=== PATIENT | female | born 1965 | race Caucasian/White ===

== ENCOUNTER 2016-04-20 07:38 | Day surgery (SDC) | payer BC ==
[2016-04-17 14:25] VITALS: BMI 34.7
[~2016-04-20 07:38] MED LIST: LACTATED RINGERS 1,000 ML IV SCH
[2016-04-20 07:54] VITALS: RESP 18; TEMP 98
[2016-04-20] MEDS ORDERED: LACTATED RINGERS 1,000 ML IV ONE (08:01)
[2016-04-20] MEDS ORDERED: LIDOCAINE 1% 20 ML VIAL (10MG/ML) FOR IV START INTRADERMA ONE (08:01)
[2016-04-20] MEDS ORDERED: PROPOFOL 10 MG/ML 20 ML VIAL IV ONE (08:34)
--- NOTE | 2016-04-20 08:48 | P.PCN ---
Date of Procedure: 04/20/16 Procedure(s) Performed: BRIEF HISTORY: Patient is a 50-year-old pleasant white female, scheduled for an elective colonoscopy as a part of screening for colorectal neoplasia. She has a family history of colon cancer diagnosed in her grandmother at age 80. PROCEDURE PERFORMED: Colonoscopy. PREOPERATIVE DIAGNOSIS: Any for colon cancer/family history of colon cancer. IV sedation per Anesthesia. PROCEDURE: After informed consent was obtained, the patient, was brought into the endoscopy unit. IV conscious sedation was administered by Anesthesia under continuous monitoring. Digital rectal examination was normal. Initially the Olympus CF-160 flexible video colonoscope was then inserted in the rectum, gradually advanced into the cecum without any difficulty. Careful examination was performed as the scope was gradually being withdrawn. Ileocecal valve and the appendiceal orifice were visualized and appeared normal. Prep was excellent. Mucosa of the cecum, ascending colon, transverse colon, descending colon, sigmoid colon, and rectum appeared normal. Retroflexion was performed in the rectum and no lesions were seen. The patient tolerated the procedure well. IMPRESSION: Normal-appearing colon from rectum to cecum with no evidence of colorectal neoplasia . RECOMMENDATIONS: Findings of this examination were discussed with the patient as well as a family. She was advised to have a repeat screening colonoscopy in 10 years.
[2016-04-20 09:14] VITALS: BP 144/83; PULSE 73
== END 2016-04-20 09:47 | disposition home or self-care (01) ==
LOC: ORWHC2ENDO 07:38
PROVIDERS: ATTEND Internal Medicine Gastroenterology
DX: Z12.11 Encounter for screening for malignant neoplasm of colon (principal); Z80.0 Family history of malignant neoplasm of digestive organs; Z79.899 Other long term (current) drug therapy; Z88.5 Allergy status to narcotic agent; Z88.8 Allergy status to other drugs, medicaments and biological substances
CPT/HCPCS: J2704; G0105; 99153

== ENCOUNTER → 2016-07-17 | Outpatient (CLI) | payer BC ==
--- NOTE | 2016-07-18 10:29 | MM ---
Reason for exam: screening (asymptomatic). Last mammogram was performed 1 year and 7 months ago. History: Patient is postmenopausal. Physical Findings: A clinical breast exam by your physician is recommended on an annual basis and results should be correlated with mammographic findings. MG Screening Mammo w CAD Bilateral CC and MLO view(s) were taken. Prior study comparison: December 25, 2014, bilateral MG screening mammo w CAD. December 21, 2013, bilateral MG screening mammo w CAD. There are scattered fibroglandular densities. Finding: There are typically benign round calcifications in the anterior, axilla position of the left breast. There is no discrete abnormality. ASSESSMENT: Benign, BI-RAD 2 RECOMMENDATION: Routine screening mammogram of both breasts in 1 year.
== END | disposition home or self-care (01) ==
LOC: RADMAMWWP 13:23
PROVIDERS: ATTEND Family Medicine
DX: Z12.31 Encounter for screening mammogram for malignant neoplasm of breast (principal)

== ENCOUNTER 2016-08-08 00:45 | Inpatient (IN) | payer BC ==
[2016-08-08] MEDS ORDERED: SODIUM CHLORIDE 0.9% 500 ML IV STA ×2 (01:03→03:57)
[2016-08-08] MEDS ORDERED: SODIUM CHLORIDE 0.9% 1,000 ML IV STA ×3 (01:03→03:57)
[2016-08-08] MEDS ORDERED: ACETAMINOPHEN TAB 500 MG TAB PO STA (01:04)
[2016-08-08] MEDS ORDERED: IBUPROFEN 800 MG TAB PO STA (01:04)
--- NOTE | 2016-08-08 01:05 | ED ---
General Adult HPI - General Chief complaint: Chest Pain Stated complaint: Chest Pain Time Seen by Provider: 08/08/16 00:57 Source: patient, RN notes reviewed, old records reviewed Mode of arrival: ambulatory Limitations: no limitations - History of Present Illness Initial comments: This is a 50-year-old female the ER for evaluation. Patient presents to ER for evaluation of the of chest pain. Chest pain, congestion, recent diagnosis of sinus infection. Patient also suffers from left arm pain. - Related Data Home Medications Medication Instructions Recorded Confirmed Cholecalciferol [Vitamin D3] 5,000 unit PO DAILY 04/17/16 04/20/16 Cyanocobalamin [Vitamin B-12] 1,000 mcg PO DAILY 04/17/16 04/20/16 Glucosamine Sulfate 1,500 mg PO DAILY 04/17/16 04/20/16 Phentermine HCl 37.5 mg PO DAILY 04/17/16 04/20/16 clonazePAM [KlonoPIN] 1 mg PO HS 04/17/16 04/20/16 Allergies Allergy/AdvReac Type Severity Reaction Status Date / Time ascorbic acid Allergy Anaphylaxis Verified 04/17/16 13:57 [From [facility] Vitamin D-Calcium] calcium combination no.27 Allergy Anaphylaxis Verified 04/17/16 13:57 [From [facility] Vitamin D-Calcium] cholecalciferol (vitamin D3) Allergy Anaphylaxis Verified 04/17/16 13:57 [From [facility] Vitamin D-Calcium] codeine Allergy Nausea & Verified 04/17/16 13:55 Vomiting multivitamin with minerals Allergy Anaphylaxis Verified 04/17/16 13:57 [From [facility] Vitamin D-Calcium] Review of Systems ROS Statement: Those systems with pertinent positive or pertinent negative responses have been documented in the HPI. ROS Other: All systems not noted in ROS Statement are negative. Past Medical History Past Medical History: No Reported History History of Any Multi-Drug Resistant Organisms: None Reported Past Surgical History: Back Surgery, Section, Hysterectomy Past Anesthesia/Blood Transfusion Reactions: Postoperative Nausea & Vomiting ( PONV) Past Psychological History: Anxiety Smoking Status: Never smoker Past Alcohol Use History: Occasional Past Drug Use History: None Reported - Past Family History Mother Family Medical History: No Reported History General Exam Limitations: no limitations General appearance: alert, in no apparent distress Head exam: Present: atraumatic, normocephalic, normal inspection Eye exam: Present: normal appearance, PERRL, EOMI. Absent: scleral icterus, conjunctival injection, periorbital swelling ENT exam: Present: normal exam, mucous membranes moist Neck exam: Present: normal inspection. Absent: tenderness, meningismus, lymphadenopathy Respiratory exam: Present: normal lung sounds bilaterally, accessory muscle use , decreased breath sounds, prolonged expiratory. Absent: respiratory distress, wheezes, rales, rhonchi, stridor Cardiovascular Exam: Present: normal rhythm, tachycardia, normal heart sounds. Absent: systolic murmur, diastolic murmur, rubs, gallop, clicks GI/Abdominal exam: Present: soft, normal bowel sounds. Absent: distended, tenderness, guarding, rebound, rigid Extremities exam: Present: normal inspection, full ROM, normal capillary refill. Absent: tenderness, pedal edema, joint swelling, calf tenderness Back exam: Present: normal inspection Neurological exam: Present: alert, oriented X3, CN II-XII intact Psychiatric exam: Present: normal affect, normal mood Skin exam: Present: warm, dry, intact, normal color. Absent: rash Course Vital Signs 08/08/16 08/08/16 00:58 02:59 Temperature 100.2 F H 98.7 F Pulse Rate 112 H 105 H Respiratory 20 18 Rate Blood Pressure 197/101 178/96 O2 Sat by Pulse 92 L 97 Oximetry - Reevaluation(s) Reevaluation #1: 08/08/16 01:05 Prior medical visit is reviewed Reevaluation #2: 08/08/16 03:59 Patient's rash is improving at this time, certainly remains tachycardic with fever EKG Findings - EKG Comments: EKG Findings:: EKG shows sinus tachycardia rate 109, ID [id number], QRS 96, QTC 439 Medical Decision Making - Medical Decision Making 50 female in the ER for evaluation of fever, feeling well jaw pain and facial pain, positive sinusitis, patient on amoxicillin outpatient with ALLERGIC reactions, presents with continued fever, elevated white count and positive infection, will admit for IV antibiotics - Lab Data Result diagrams: 08/08/16 01:31 08/08/16 01:31 Lab Results 08/08/16 08/08/16 08/08/16 Range/Units 01:31 01:31 01:31 WBC 13.9 H (3.8-10.6) k/uL RBC 5.23 (3.80-5.40) m/uL Hgb 15.1 (11.4-16.0) gm/dL Hct 43.9 (34.0-46.0) % MCV 84.0 (80.0-100.0) fL MCH 28.9 (25.0-35.0) pg MCHC 34.4 (31.0-37.0) g/dL RDW 13.2 (11.5-15.5) % Plt Count 252 (150-450) k/uL Neutrophils % 85 % Lymphocytes % 9 % Monocytes % 3 % Eosinophils % 3 % Basophils % 0 % Neutrophils # 11.7 H (1.3-7.7) k/uL Lymphocytes # 1.2 (1.0-4.8) k/uL Monocytes # 0.4 (0-1.0) k/uL Eosinophils # 0.4 (0-0.7) k/uL Basophils # 0.1 (0-0.2) k/uL PT (9.0-12.0) sec INR (<1.1) APTT (22.0-30.0) sec D-Dimer (<0.60) mg/L FEU Sodium 141 (137-145) mmol/L Potassium 3.7 (3.5-5.1) mmol/L Chloride 106 (98-107) mmol/L Carbon Dioxide 22 (22-30) mmol/L Anion Gap 13 mmol/L BUN 14 (7-17) mg/dL Creatinine 0.80 (0.52-1.04) mg/dL Est GFR (MDRD) Af Amer >60 (>60 ml/min/1.73 sqM) Est GFR (MDRD) Non-Af >60 (>60 ml/min/1.73 sqM) Glucose 147 H (74-99) mg/dL Plasma Lactic Acid Jose (0.7-2.0) mmol/L Calcium 9.6 (8.4-10.2) mg/dL Phosphorus 3.2 (2.5-4.5) mg/dL Magnesium 1.7 (1.6-2.3) mg/dL Total Bilirubin 1.1 (0.2-1.3) mg/dL AST 16 (14-36) U/L ALT 25 (9-52) U/L Alkaline Phosphatase 102 (38-126) U/L Total Creatine Kinase 55 (30-135) U/L CK-MB (CK-2) 0.4 (0.0-2.4) ng/mL CK-MB (CK-2) Rel Index 0.7 Troponin I <0.012 (0.000-0.034) ng/mL Total Protein 7.7 (6.3-8.2) g/dL Albumin 4.5 (3.5-5.0) g/dL Group A Strep Rapid (Negative) 08/08/16 08/08/16 08/08/16 Range/Units 01:31 01:31 01:31 WBC (3.8-10.6) k/uL RBC (3.80-5.40) m/uL Hgb (11.4-16.0) gm/dL Hct (34.0-46.0) % MCV (80.0-100.0) fL MCH (25.0-35.0) pg MCHC (31.0-37.0) g/dL RDW (11.5-15.5) % Plt Count (150-450) k/uL Neutrophils % % Lymphocytes % % Monocytes % % Eosinophils % % Basophils % % Neutrophils # (1.3-7.7) k/uL Lymphocytes # (1.0-4.8) k/uL Monocytes # (0-1.0) k/uL Eosinophils # (0-0.7) k/uL Basophils # (0-0.2) k/uL PT 10.5 (9.0-12.0) sec INR 1.0 (<1.1) APTT 25.9 (22.0-30.0) sec D-Dimer 0.74 H (<0.60) mg/L FEU Sodium (137-145) mmol/L Potassium (3.5-5.1) mmol/L Chloride (98-107) mmol/L Carbon Dioxide (22-30) mmol/L Anion Gap mmol/L BUN (7-17) mg/dL Creatinine (0.52-1.04) mg/dL Est GFR (MDRD) Af Amer (>60 ml/min/1.73 sqM) Est GFR (MDRD) Non-Af (>60 ml/min/1.73 sqM) Glucose (74-99) mg/dL Plasma Lactic Acid Jose 1.4 (0.7-2.0) mmol/L Calcium (8.4-10.2) mg/dL Phosphorus (2.5-4.5) mg/dL Magnesium (1.6-2.3) mg/dL Total Bilirubin (0.2-1.3) mg/dL AST (14-36) U/L ALT (9-52) U/L Alkaline Phosphatase (38-126) U/L Total Creatine Kinase (30-135) U/L CK-MB (CK-2) (0.0-2.4) ng/mL CK-MB (CK-2) Rel Index Troponin I (0.000-0.034) ng/mL Total Protein (6.3-8.2) g/dL Albumin (3.5-5.0) g/dL Group A Strep Rapid Negative (Negative) - Radiology Data Radiology results: report reviewed (Chest x-raynegative for acute disease, CT soft tissue neck CT chest shows sinusitis no PE), image reviewed Disposition Clinical Impression: Acute sinusitis, Sepsis, Allergic urticaria, Failure of outpatient treatment Narrative: No Amoxicillin Disposition: ADMITTED IP TO THIS HOSP Condition: Good Referrals: Sachi Beckham MD [Primary Care Provider] - 1-2 days
[2016-08-08] MEDS ORDERED: DEXAMETHASONE SOD PHOSPHATE 10 MG/ML 1 ML VIAL IV STA (01:29)
[2016-08-08] MEDS ORDERED: methylPREDNISolone SOD SUCCI 125 MG/2 ML VIAL IV STA (01:29)
[2016-08-08] MEDS ORDERED: ACETAMINOPHEN IV (For NPO) 1,000 MG in EMPTY BAG 1 BAG IVPB STA (01:29)
[2016-08-08] MEDS ORDERED: KETOROLAC 30 MG/ML 1 ML VIAL IVP STA (01:29)
[2016-08-08 01:50] LABS: Basophils # (A) 0.1 k/uL (0-0.2); Basophils % (A) 0 %; CH 29.6; CHCM 35.3; Eosinophils # (A) 0.4 k/uL (0-0.7); Eosinophils % (A) 3 %; HCT 43.9 % (34.0-46.0); HDW 2.78; HGB 15.1 gm/dL (11.4-16.0); Luc # (Auto) 0.09; Luc % (Auto) 1; Lymphocytes # (A) 1.2 k/uL (1.0-4.8); Lymphocytes % (A) 9 %; MCH 28.9 pg (25.0-35.0); MCHC 34.4 g/dL (31.0-37.0); Mean Platelet Volume 6.4; Monocytes # (A) 0.4 k/uL (0-1.0); Monocytes % (A) 3 %; Neutrophils # (A) 11.7 k/uL (1.3-7.7); Neutrophils % (A) 85 %; RBC 5.23 m/uL (3.80-5.40); RDW 13.2 % (11.5-15.5); WBC 13.9 k/uL (3.8-10.6); WBC (Perox) 12.98
[2016-08-08] MEDS ORDERED: FAMOTIDINE 20 MG/2 ML VIAL IV STA (01:53)
[2016-08-08] MEDS ORDERED: ONDANSETRON 4 MG/2 ML VIAL IVP STA (01:53)
[2016-08-08] MEDS ORDERED: diphenhydrAMINE 50 MG/ML 1 ML VIAL IVP STA (01:53)
--- NOTE | 2016-08-08 01:55 | XR ---
EXAM: XR Chest, 3 Views CLINICAL HISTORY: Reason: Weakness TECHNIQUE: Frontal and lateral views of the chest. COMPARISON: CXR 09/22/09 FINDINGS: Lungs: Unremarkable. No consolidation. Pleural space: Unremarkable. No pneumothorax. Heart: Unremarkable. No cardiomegaly. Mediastinum: Unremarkable. Bones/joints: Unremarkable. IMPRESSION: Unremarkable chest x-rays.
[2016-08-08 02:01] LABS: ALT 25 U/L (9-52); AST 16 U/L (14-36); Alkaline Phosphatase 102 U/L (38-126); Anion Gap 13 mmol/L; Blood Urea Nitrogen 14 mg/dL (7-17); Calcium 9.6 mg/dL (8.4-10.2); Carbon Dioxide 22 mmol/L (22-30); Chloride 106 mmol/L (98-107); Glucose 147 mg/dL (74-99); Magnesium 1.7 mg/dL (1.6-2.3); Non-African American GFR(MDRD) >60 (>60 ml/min/1.73 sqM); Phosphorous 3.2 mg/dL (2.5-4.5); Potassium 3.7 mmol/L (3.5-5.1); Sodium 141 mmol/L (137-145); Total Bilirubin 1.1 mg/dL (0.2-1.3); Total Protein 7.7 g/dL (6.3-8.2)
[2016-08-08 02:03] LABS: Partial Thromboplastin Time 25.9 sec (22.0-30.0); Prothrombin Time 10.5 sec (9.0-12.0)
[2016-08-08 02:12] LABS: Creatine Kinase 55 U/L (30-135)
--- NOTE | 2016-08-08 02:15 | CT ---
EXAM: CT Neck Without Intravenous Contrast CLINICAL HISTORY: Reason: Pain, left jaw pain, left arm pain, chest heaviness, diagnosed with sinus infection yesterday. TECHNIQUE: Axial computed tomography images of the neck without intravenous contrast. CTDI is 16.1 mGy and DLP is 553.4 mGy-cm This CT exam was performed using one or more of the following dose reduction techniques: automated exposure control, adjustment of the mA and/or kV according to patient size, and/or use of iterative reconstruction technique. Coronal and sagittal reformatted images were created and reviewed. COMPARISON: No relevant prior studies available. FINDINGS: Nasopharynx: Unremarkable. Oropharynx: Unremarkable. No significant tonsillar enlargement. Hypopharynx: Unremarkable. Larynx: Unremarkable. Normal epiglottis. Trachea: Unremarkable. Retropharyngeal space: Unremarkable. Submandibular/parotid glands: Unremarkable. Glands are normal in size. Thyroid: Unremarkable. No enlarged or calcified nodules. Bones/joints: Degenerative disc and left sided facet disease seen at C3/C4 with mild anterolisthesis. Probable degree of left-sided neuroforaminal stenosis at that level. Cervical spondylosis is also seen with left-sided neuroforaminal stenosis at C5/C6. Soft tissues: Unremarkable. Vasculature: No acute findings. Lymph nodes: Unremarkable. No lymphadenopathy. Sinuses: Fluid level within the right maxillary sinus which may correlate with acute sinusitis as per history. Mild mucosal thickening of the remainder of the paranasal sinuses, Lung apices: Unremarkable as visualized. IMPRESSION: 1. Fluid level within the right maxillary sinus which may correlate with acute sinusitis as per history. No abnormal abscess is identified however exam is less than optimal without IV contrast. 2. Degenerative disc and left sided facet disease seen at C3/C4 with mild anterolisthesis. Left-sided neuroforaminal stenosis at that level. 3. Cervical spondylosis is also seen with left-sided neuroforaminal stenosis at C5/C6.
[2016-08-08 02:25] LABS: Creatine Kinase MB 0.4 ng/mL (0.0-2.4); Troponin I <0.012 ng/mL (0.000-0.034)
[2016-08-08] MEDS ORDERED: RX INFO: IV CONTRAST WAS GIVEN 1 EACH MISC MISCELLANE PRN (02:26)
--- NOTE | 2016-08-08 03:35 | CT ---
EXAM: CT Angiography Chest With Intravenous Contrast CLINICAL HISTORY: Reason: Pain TECHNIQUE: Axial computed tomographic angiography images of the chest with intravenous contrast using pulmonary embolism protocol. CTDI is 11.7 mGy and DLP is 457.1 mGy-cm This CT exam was performed using one or more of the following dose reduction techniques: automated exposure control, adjustment of the mA and/or kV according to patient size, and/or use of iterative reconstruction technique. MIP reconstructed images were created and reviewed. Coronal and sagittal reformatted images were created and reviewed. CONTRAST: 55 mL of Omnipaque 350 administered intravenously. COMPARISON: No relevant prior studies available. FINDINGS: Pulmonary arteries: Unremarkable. No pulmonary embolism. Aorta: No acute findings. No thoracic aortic aneurysm. Lungs: Unremarkable. No mass. No consolidation. Pleural space: Unremarkable. No significant effusion. No pneumothorax. Heart: Unremarkable. No cardiomegaly. No significant pericardial effusion. No evidence of RV dysfunction. Mediastinum: Small hiatal hernia. Bones/joints: Multilevel degenerative changes of the spine. No acute fracture. No dislocation. Soft tissues: Unremarkable. Lymph nodes: Unremarkable. No enlarged lymph nodes. Liver: The spleen is enlarged measuring up to 14.1 cm. The liver is enlarged. IMPRESSION: No pulmonary embolism. Hepatosplenomegaly. Small hiatal hernia.
[2016-08-08] MEDS ORDERED: diphenhydrAMINE 50 MG/ML 1 ML VIAL IVP PRN (03:57)
[2016-08-08] MEDS ORDERED: AZITHROMYCIN 500 MG in SODIUM CHLORIDE 0.9% 250 ML IVPB STA (03:57)
[2016-08-08] MEDS ORDERED: ACETAMINOPHEN TAB 325 MG TAB PO PRN (04:00)
[2016-08-08 04:24] LABS: Appearance,Urine Clear (Clear); Bacteria,Urine Rare /hpf; Bilirubin,Urine Negative (Negative); Glucose,Urine (UA) Negative (Negative); Ketones,Urine Trace (Negative); Leukocyte Esterase,Urine Negative (Negative); Mucus,Urine Rare /hpf; Nitrite,Urine Negative (Negative); PH, Urine 5.5 (5.0-8.0); Particle Count 1367; Protein,Urine 1+ (Negative); Squamous Epithelial Cell,Urine 1 /hpf (0-4); UA Billing (MACRO vs. MICRO) MICRO; Urobilinogen,Urine <2.0 mg/dL (<2.0); WBC,Urine <1 /hpf (0-5)
[2016-08-08] MEDS ORDERED: IV VANCOMYCIN PER PHARMACY 1 EACH MISC MISCELLANE PRN (06:24)
[2016-08-08] MEDS: VANCOMYCIN 1,500 MG in SODIUM CHLORIDE 0.9% 250 ML IVPB SCH ×2 (08:52→21:22)
[2016-08-08] MEDS ORDERED: FAMOTIDINE 20 MG/2 ML VIAL IV SCH (09:00)
[2016-08-08] MEDS: IBUPROFEN 600 MG TAB PO SCH ×3 (09:00→21:25)
[2016-08-08] MEDS ORDERED: methylPREDNISolone SOD SUCCI 125 MG/2 ML VIAL IV SCH (09:00)
[2016-08-08] MEDS ORDERED: AMOXIC-POT CLAV 875-125MG 1 EACH TAB PO SCH (11:00)
--- NOTE | 2016-08-08 11:31 | P.HPIM ---
History of Present Illness H&P Date: 08/08/16 Chief Complaint: Since, fever and chills, severe facial pain, body ache, leukocytosis 50-year-old female one of our office patient was overweight with history of hyperglycemia GERD and severe insomnia was apparently was seen in the office 24 hours earlier for ROM severe facial pain low-grade temperature was diagnosed with severe sinusitis. Patient was started on Augmentin and took one dose only. Patient the blood to have body ache fever or chills and worsening facial pain with or lies fatigue and tiredness with mild tachycardia and tachypnea. Patient also developed to have significant shortness of breath with it. Ended up coming to the emergency department at [facility] with the above problem she ended up going for soft tissue x-ray showed fluid level in the right maxillary sinus along with mild spinal stenosis in the cervical spine. Her CTA came back negative for PE chest x-ray did not show clear evidence of pneumonia. Patient supposedly had a blood culture done started on 1 g of vancomycin and admitted to the hospital for sepsis consistent with tachycardia, fever and chills, leukocytosis, and mild hypoxia. Review of Systems Constitutional: Reports chills, Reports chronic headaches, Reports chronic pain , Reports fatigue, Reports fever, Reports malaise, Reports poor appetite, Reports sweats, Reports weakness, Reports weight gain, Denies as per HPI, Denies anorexia, Denies daytime sleepiness, Denies lethargy, Denies night sweats , Denies weight loss Eyes: bilateral blurred vision, bilateral diplopia Ears: bilateral: decreased hearing Ears, nose, mouth and throat: Reports dental pain, Reports dysphagia, Reports headache, Reports nasal congestion, Reports nasal discharge, Reports neck fullness/pressure, Reports sinus pain, Reports sinus pressure, Reports swelling in mouth, Reports sore throat, Denies as per HPI, Denies ant. neck pain, Denies bleeding gums, Denies epistaxis, Denies hoarseness, Denies mouth pain, Denies neck lump, Denies nose pain, Denies odynophagia, Denies post-nasal drip, Denies swelling in throat, Denies vertigo, Denies voice changes Breasts: bilateral: as per HPI Cardiovascular: Reports decreased exercise tolerance, Reports dyspnea on exertion, Reports edema, Reports high blood pressure, Reports irregular heart beat, Reports leg edema, Reports lightheadedness, Reports orthopnea, Reports palpitations, Reports rapid heart beat, Reports shortness of breath, Denies as per HPI, Denies chest pain, Denies claudication, Denies paroxysmal nocturnal dyspnea, Denies phlebitis, Denies syncope Respiratory: Reports congestion, Reports cough, Reports dyspnea, Reports respiratory infections, Denies as per HPI, Denies cough with sputum, Denies excessive sputum, Denies hemoptysis, Denies home oxygen, Denies pain, Denies pain on inspiration, Denies pleurisy, Denies sleep apnea, Denies snoring, Denies wheezing Gastrointestinal: Reports bloating, Reports dyspepsia, Reports early satiety, Reports indigestion, Reports nausea, Denies as per HPI, Denies abdominal pain, Denies belching, Denies BRBPR, Denies change in bowel habits, Denies coffee ground emesis, Denies constipation, Denies diarrhea, Denies excessive gas, Denies heartburn, Denies hematemesis, Denies hematochezia, Denies jaundice, Denies lactose intolerance, Denies loss of appetite, Denies melena, Denies vomiting Genitourinary: Denies as per HPI, Denies abnormal vaginal bleeding, Denies decreased libido, Denies difficulty conceiving, Denies difficulty voiding, Denies dysmenorrhea, Denies dyspareunia, Denies dysuria, Denies flank pain, Denies genital sores, Denies hematuria, Denies hot flashes, Denies incomplete emptying, Denies kidney stones, Denies menorrhagia, Denies mixed incontinence, Denies nocturia, Denies pelvic pain, Denies post void dribbling, Denies , Denies prolapse symptoms, Denies stress incontinence, Denies urge incontinence , Denies urgency, Denies urinary frequency, Denies vaginal discharge, Denies vaginal dryness, Denies vaginal itching, Denies vaginal odor Menstruation: Denies as per HPI, Denies amenorrhea, Denies amenorrhea on BC, Denies currently menstrual, Denies cycle < 21 days, Denies cycle > 35 days, Denies cycle variable, Denies menses 1-7 days, Denies menses 8 or > days, Denies menses variable, Denies period heavy, Denies period light, Denies period normal, Denies period spotting, Denies post hysterectomy, Denies postmenopausal , Denies premenarcheal Musculoskeletal: Reports limitation of motion, Reports low back pain, Reports myalgias, Reports neck pain, Denies as per HPI, Denies arm numbness/tingling, Denies atrophy, Denies fractures, Denies frequent falls, Denies gait dysfunction , Denies hot joints, Denies leg numbness/tingling, Denies loss of height, Denies morning stiffness, Denies muscle cramps, Denies muscle weakness, Denies neck stiffness, Denies prior amputations, Denies redness of joints, Denies shooting arm pain, Denies shooting leg pain Musculoskeletal: bilateral: ankle pain Integumentary: Reports dryness, Reports pruritus, Reports rash, Denies as per HPI, Denies acne, Denies boils, Denies brittle nails, Denies change in hair/ nails, Denies color changes, Denies darkening of skin, Denies depigmentation, Denies foot/leg ulcers, Denies growths, Denies hirsutism, Denies lesions, Denies onychomycosis, Denies sores, Denies striae, Denies unusual bruising, Denies wounds Neurological: Reports spasticity, Reports tingling, Denies as per HPI, Denies aphasia, Denies ataxia, Denies balance difficulties, Denies burning pain, Denies change in mentation, Denies change in smell/taste, Denies change in speech, Denies confusion, Denies convulsions, Denies double vision, Denies gait dysfunction, Denies head injury, Denies headaches, Denies hearing difficulties, Denies lack of coordination, Denies loss of vision, Denies memory loss, Denies migraines, Denies motor disturbance, Denies numbness, Denies paralysis, Denies paresthesias, Denies seizures, Denies sensory deficit, Denies syncope, Denies tic, Denies transient paralysis, Denies tremors, Denies vertigo, Denies weakness , Denies visual changes Psychiatric: Reports anxiety, Denies as per HPI, Denies anhedonia, Denies anxiety attacks, Denies change in appetite, Denies change in libido, Denies change in sleep habits, Denies confusion, Denies depression, Denies difficulty concentrating, Denies disorientation, Denies hallucinations, Denies hopelessness , Denies hypersomnia, Denies insomnia, Denies irritability, Denies memory loss, Denies mood swings, Denies paranoia, Denies sadness/tearfulness, Denies sleep disturbances, Denies suicidal ideation Endocrine: Reports excessive sweating, Reports excessive thirst, Reports fatigue , Reports heat intolerance, Denies as per HPI, Denies cold intolerance, Denies deepening of the voice, Denies flushing, Denies high blood sugars, Denies increase in ring/shoe/hat size, Denies low blood sugars, Denies nocturia, Denies palpitations, Denies polydipsia, Denies polyphagia, Denies polyuria, Denies proptosis, Denies recent glucocorticoid use, Denies thyroid mass, Denies weight change Hematologic/Lymphatic: Reports easy bruising, Denies as per HPI, Denies easy bleeding, Denies lymphadenopathy, Denies lymphedema, Denies thrombophilia Allergic/Immunologic: Reports allergic rhinitis, Denies as per HPI, Denies anaphylaxis, Denies angioedema, Denies gluten intolerance, Denies persistent infections, Denies seasonal allergies, Denies urticaria, Denies wheezing Past Medical History Past Medical History: No Reported History History of Any Multi-Drug Resistant Organisms: None Reported Past Surgical History: Back Surgery, Section, Hysterectomy Past Anesthesia/Blood Transfusion Reactions: Postoperative Nausea & Vomiting ( PONV) Past Psychological History: Anxiety Smoking Status: Never smoker Past Alcohol Use History: Occasional Past Drug Use History: None Reported - Past Family History Mother Family Medical History: No Reported History Medications and Allergies Home Medications Medication Instructions Recorded Confirmed Type Cholecalciferol [Vitamin D3] 5,000 unit PO DAILY 04/17/16 08/08/16 History Cyanocobalamin [Vitamin B-12] 1,000 mcg PO DAILY 04/17/16 08/08/16 History Phentermine HCl 37.5 mg PO DAILY 04/17/16 08/08/16 History clonazePAM [KlonoPIN] 1 mg PO HS 04/17/16 08/08/16 History Allergies Allergy/AdvReac Type Severity Reaction Status Date / Time amoxicillin [From Augmentin] Allergy Anaphylaxis Verified 08/08/16 08:20 ascorbic acid Allergy Anaphylaxis Verified 08/08/16 08:20 [From Emergen- Vitamin D-Calcium] calcium combination no.27 Allergy Anaphylaxis Verified 08/08/16 08:20 [From Emergen- Vitamin D-Calcium] cholecalciferol (vitamin D3) Allergy Anaphylaxis Verified 08/08/16 08:20 [From Emergen-C Vitamin D-Calcium] clavulanic acid Allergy Anaphylaxis Verified 08/08/16 08:20 [From Augmentin] codeine Allergy Nausea & Verified 08/08/16 08:20 Vomiting multivitamin with minerals Allergy Anaphylaxis Verified 08/08/16 08:20 [From Emergen-C Vitamin D-Calcium] Physical Exam Vitals: Vital Signs Temp Pulse Pulse Resp BP BP Pulse Ox 08/08/16 07:00 97.0 F L 114 H 16 150/85 94 L 08/08/16 05:01 98.0 F 106 H 16 164/93 95 08/08/16 04:20 105 H 16 148/67 98 Intake and Output 08/07/16 08/08/16 08/08/16 22:59 06:59 14:59 Other: Voiding Method Toilet # Voids 2 - Constitutional General appearance: no average body habitus, cooperative, no disheveled, no mild distress, no morbidly obese, no no acute distress, obese, no severe distress, no thin - EENT Neck and pain and pressure in the maxillary sinus area specially in the right side with reactive lymph node in her neck area. Eyes: no abnormal pupil, no anicteric sclerae, no disc margins sharp, no edentulous, no EOMI, no PERRLA, no fundus normal, no photophobia, no dentition normal, no poor dentition, no ptosis, no scleral icterus, normal appearance ENT: no hard of hearing, no hearing grossly normal, no NA/AT, no normal oropharynx, no other, pharyngeal erythema, no thrush, no tonsillar exudates, tonsillar swelling Ears: bilateral: normal - Neck Neck: lymphadenopathy, no normal ROM, no other, no rigidity, no stridor, no thyromegaly Carotids: bilateral: upstroke normal Thyroid: bilateral: normal size - Respiratory Respiratory: bilateral: diminished, dullness - Cardiovascular Rhythm: regular Heart sounds: normal: S1, S2 Abnormal Heart Sounds: systolic murmur, S3 Gallop - Gastrointestinal General gastrointestinal: no absent bowel sounds, decreased bowel sounds, no distended, no hepatomegaly, no hyperactive bowel sounds, normal bowel sounds, no organomegaly, no rigid, no scaphoid, soft, no splenomegaly, no tenderness, no umbilical hernia, no ventral hernia - Integumentary Integumentary: no calor, no cellulitis, no cyanotic, no decreased turgor, no flushed, no jaundiced, normal, no normal turgor, pale, rash, no ulcer - Neurologic Neurologic: CNII-XII intact - Musculoskeletal Musculoskeletal: no gait normal, generalized weakness, no strength equal bilaterally, no right sided weakness, no left sided weakness - Psychiatric Psychiatric: A&O x's 3, appropriate affect, no intact judgment & insight Results CBC & Chem 7: 08/08/16 01:31 08/08/16 01:31 Thrombosis Risk Factor Assmnt - DVT/VTE Prophylaxis DVT/VTE Prophylaxis: Mechanical Prophylaxis ordered - Choose All That Apply Any of the Below Risk Factors Present?: Yes Each Factor Represents 1 point: Age 41-60 years, Obesity (BMI >25) Other Risk Factors: No Thrombosis Risk Factor Assessment Total Risk Factor Score: 2 Thrombosis Risk Factor Assessment Level: Low Risk Assessment and Plan Plan: 1 sepsis/SIRS: With reactive symptoms including tachycardia fever or chills hypoxia shortness of breath. Patient was giving 1 g of Vanco we'll continue Vanco for now continue supportive care blood culture was done all finding so far consistent with severe sinusitis with nothing else which can be the source of infection slightly unusual. 2 severe sinusitis: With patient's current symptoms vancomycin was started were started patient back on oral antibiotics along with steroid will be switched to bring dose of prednisone for total of 12 days. Continue patient on Flonase and decongestant medication. 3 hyperglycemia: Patient will be on Accu-Chek with sliding scales coverage while she is on steroid. 4 leukocytosis: Most likely secondary to infection treat underlying disease repeat CBC in 48 hours. 5 severe insomnia: Patient is on clonazepam 1 mg daily at bedtime. 6 severe GERD/GI prophylaxis: Patient will be on Pepcid 20 mg daily. 7 DVT prophylaxis: Patient remain on Lovenox 40 mg daily. CODE STATUS: Full code. Expectation from this admission: Patient be in the hospital for 1-2 nights.
[2016-08-08] MEDS: DOXYCYCLINE 50 MG CAP PO SCH ×2 (12:50→21:23)
[2016-08-08] MEDS: ENOXAPARIN 40 MG/0.4 ML SYRINGE SQ SCH (12:52)
[2016-08-08] MEDS ORDERED: clonazePAM 1 MG TAB PO SCH (21:00)
[2016-08-08] MEDS: FAMOTIDINE 20 MG TAB PO SCH (21:23)
[2016-08-09 07:39] VITALS: BP 160/86; PULSE 87; RESP 16; TEMP 96.8
[2016-08-09] MEDS: DOXYCYCLINE 50 MG CAP PO SCH (07:52)
[2016-08-09] MEDS: VANCOMYCIN 1,500 MG in SODIUM CHLORIDE 0.9% 250 ML IVPB SCH (07:52)
[2016-08-09] MEDS: FAMOTIDINE 20 MG TAB PO SCH (07:53)
[2016-08-09] MEDS: ENOXAPARIN 40 MG/0.4 ML SYRINGE SQ SCH (07:53)
[2016-08-09] MEDS: IBUPROFEN 600 MG TAB PO SCH (07:54)
[2016-08-09] MEDS ORDERED: AZITHROMYCIN 500 MG in SODIUM CHLORIDE 0.9% 250 ML IVPB SCH (09:00)
[2016-08-09] MEDS ORDERED: predniSONE 20 MG TAB PO SCH (09:00)
--- NOTE | 2016-08-09 13:01 | P.DS ---
Providers Date of admission: 08/08/16 04:01 Expected date of discharge: 08/09/16 Attending physician: Sachi Beckham Primary care physician: Sachi Beckham [facility] Course: 08/08: 50-year-old female one of our office patient was overweight with history of hyperglycemia GERD and severe insomnia was apparently was seen in the office 24 hours earlier for ROM severe facial pain low-grade temperature was diagnosed with severe sinusitis. Patient was started on Augmentin and took one dose only. Patient the blood to have body ache fever or chills and worsening facial pain with or lies fatigue and tiredness with mild tachycardia and tachypnea. Patient also developed to have significant shortness of breath with it. Ended up coming to the emergency department at [facility] with the above problem she ended up going for soft tissue x-ray showed fluid level in the right maxillary sinus along with mild spinal stenosis in the cervical spine. Her CTA came back negative for PE chest x-ray did not show clear evidence of pneumonia. Patient supposedly had a blood culture done started on 1 g of vancomycin and admitted to the hospital for sepsis consistent with tachycardia, fever and chills, leukocytosis, and mild hypoxia. 08/09: Patient's symptoms improved. Urine culture showed no growth, throat culture still in progress, preliminary shows Streptococcus group A. she will be discharged on doxycycline and a prednisone taper. She was also discharged with Flonase and Claritin. She'll follow-up in the office in a week, sooner if needed. Discharge diagnoses: 1 sepsis/SIRS 2 severe sinusitis 3 hyperglycemia 4 leukocytosis 5 severe insomnia CODE STATUS: Full code. CC: Dr. Beckham The above impression and plan of care have been discussed and directed by signing physician. Rupali Yuen nurse practitioner acting as scribe for signing physician. Pertinent Studies: Chest CTA, soft tissue neck CT, chest x-ray Patient Condition at Discharge: Good Plan - Discharge Summary New Discharge Prescriptions: Desloratadine/Pseudoephedrine [Clarinex-D 12 Hour Tablet] 1 each PO BID #60 tbmp.12hr Doxycycline [Vibramycin] 100 mg PO BID #20 cap Famotidine [Pepcid] 20 mg PO Q12HR #60 tab Fluticasone Nasal Fiatt [Flonase Nasal Fiatt] 2 spr EA NOSTRIL DAILY #1 bottle predniSONE 5 mg PO DAILY #40 tab Discharge Medication List Cholecalciferol [Vitamin D3] 5,000 unit PO DAILY 04/17/16 [History] Cyanocobalamin [Vitamin B-12] 1,000 mcg PO DAILY 04/17/16 [History] Phentermine HCl 37.5 mg PO DAILY 04/17/16 [History] clonazePAM [KlonoPIN] 1 mg PO HS 04/17/16 [History] Desloratadine/Pseudoephedrine [Clarinex-D 12 Hour Tablet] 1 each PO BID #60 tbmp.12hr 08/09/16 [Rx] Doxycycline [Vibramycin] 100 mg PO BID #20 cap 08/09/16 [Rx] Famotidine [Pepcid] 20 mg PO Q12HR #60 tab 08/09/16 [Rx] Fluticasone Nasal Fiatt [Flonase Nasal Fiatt] 2 spr EA NOSTRIL DAILY #1 bottle 08/09/16 [Rx] predniSONE 5 mg PO DAILY #40 tab 08/09/16 [Rx] Follow up Appointment(s)/Referral(s): Sachi Beckham MD [Primary Care Provider] - 08/13/16 9:30 am Patient Instructions/Handouts: Urticaria (GEN), Sinusitis (GEN) Activity/Diet/Wound Care/Special Instructions: Regular diet. Discharge Disposition: HOME SELF-CARE
== END 2016-08-09 11:11 | disposition home or self-care (01) | DRG 872 ==
LOC: EC 00:45 → 4MS4W 04:01
PROVIDERS: ADMIT Family Medicine; ATTEND Family Medicine
DX: A41.9 Sepsis, unspecified organism (principal); M48.02 Spinal stenosis, cervical region; B95.0 Streptococcus, group A, as the cause of diseases classified elsewhere; R00.0 Tachycardia, unspecified; J01.00 Acute maxillary sinusitis, unspecified; R73.9 Hyperglycemia, unspecified; R09.02 Hypoxemia; R06.82 Tachypnea, not elsewhere classified; D72.829 Elevated white blood cell count, unspecified; L50.0 Allergic urticaria; R51 Headache; R53.83 Other fatigue; K21.9 Gastro-esophageal reflux disease without esophagitis; G47.00 Insomnia, unspecified; E66.3 Overweight; G89.29 Other chronic pain; F41.9 Anxiety disorder, unspecified; Z68.35 Body mass index [BMI] 35.0-35.9, adult; Z79.899 Other long term (current) drug therapy; Z88.1 Allergy status to other antibiotic agents; Z90.710 Acquired absence of both cervix and uterus; Z88.5 Allergy status to narcotic agent; Z88.0 Allergy status to penicillin; Z88.8 Allergy status to other drugs, medicaments and biological substances
CPT/HCPCS: 36415; 70490; 71020; 71275; 80053; 81001; 82550; 82553; 83605; 83735; 84100; 84484; 85025; 85379; 85610; 85730; 87081; 87086; 87430; 93005; 96361; 96365; 96375; 99285

== ENCOUNTER → 2017-08-20 | Outpatient (CLI) | payer BC ==
--- NOTE | 2017-08-20 14:55 | BD ---
EXAMINATION TYPE: Axial Bone Density DATE OF EXAM: 08/20/2017 COMPARISON: NONE CLINICAL HISTORY: Height: 5 FT 5 1/2 IN Weight: 228 FRAX RISK QUESTIONS: RISK FACTORS HISTORY OF: Surgery to Spine/Hip(right/left)/Wrist (right/left): LUMBAR FUSION When: 22 YEARS AGO Family History of Osteoporosis: YES Active: YES Postmenopausal woman: PART HYST AGE 30 MEDICATIONS: Additional Medications: WEIGHT LOSS MEDS, VALSARTIN, SLEEP AID Additional History: EXAM MEASUREMENTS: Bone mineral density about the R hip (g/cm2): 1.223 Bone mineral density about the L hip (g/cm2): 1.180 T Score values are as follows: -----R Neck: 1.3 -----L Neck: 1.0 -----R Total: 2.7 -----L Total: 2.2 BASELINE Bone mineral density about the L Wrist (g/cm2): 0.862 T Score values are as follows: -----Dist. R+U: 3.6 -----Prox. R+U: 2.2 -----Radius total: 3.1 BASELINE IMPRESSION: Normal (Values between +1 and -1 indicate normal bone mass). Consider repeating this study in 5 year s or sooner if there is some new clinical indication. NOTE: T-SCORE=SD OF THE YOUNG ADULT MEAN.
--- NOTE | 2017-08-21 13:54 | MM ---
Reason for exam: screening (asymptomatic). Last mammogram was performed 1 year and 1 month ago. History: Patient is postmenopausal. Family history of breast cancer in maternal aunt. Physical Findings: A clinical breast exam by your physician is recommended on an annual basis and results should be correlated with mammographic findings. MG Screening Mammo w CAD Bilateral CC and MLO view(s) were taken. Prior study comparison: July 17, 2016, bilateral MG screening mammo w CAD. December 25, 2014, bilateral MG screening mammo w CAD. There are scattered fibroglandular densities. Finding: There is a typically benign appearing developing 5 mm equal density (isodense), indistinct oval mass located 9 cm from the nipple in the upper outer quadrant, posterior position of the right breast. New finding since July 17, 2016 and December 25, 2014. ASSESSMENT: Incomplete: need additional imaging evaluation, BI-RAD 0 RECOMMENDATION: Special view mammogram of the right breast. If lesion persists on supplemental views, image directed ultrasound is recommended. [facility] will attempt to contact patient to return for supplemental views and ultrasound if indicated.
== END | disposition home or self-care (01) ==
LOC: RADMAMWWP 07:06
PROVIDERS: ATTEND Family Medicine
DX: Z12.31 Encounter for screening mammogram for malignant neoplasm of breast (principal); Z78.0 Asymptomatic menopausal state
CPT/HCPCS: 77067; 77080

== ENCOUNTER → 2017-08-29 | Outpatient (CLI) | payer BC ==
--- NOTE | 2017-08-29 14:47 | MM ---
Reason for exam: additional evaluation requested from abnormal screening. Last mammogram was performed less than 1 month ago. History: Patient is postmenopausal. Family history of breast cancer in maternal aunt at age 50 and breast cancer in 2 paternal cousins. Physical Findings: Nurse did not find any significant physical abnormalities on exam. MG Work Up Mamm w CAD RT Spot compression CC, spot compression MLO, and ML view(s) were taken of the right breast. Prior study comparison: August 20, 2017, bilateral MG screening mammo w CAD. July 17, 2016, bilateral MG screening mammo w CAD. The breast tissue is heterogeneously dense. This may lower the sensitivity of mammography. The right lateral asymmetry persists on spot compression view with no definitive MLO/ML correlate. These results were verbally communicated with the patient and result sheet given to the patient on 08/29/17. ASSESSMENT: Incomplete: need additional imaging evaluation, BI-RAD 0 RECOMMENDATION: Ultrasound of the right breast. lateral breast
--- NOTE | 2017-08-29 14:48 | USB ---
Reason for exam: additional evaluation requested from abnormal screening. History: Patient is postmenopausal. Family history of breast cancer in maternal aunt at age 50 and breast cancer in 2 paternal cousins. US Breast Workup Limited RT Right limited breast ultrasound including focal area of concern, retroareolar and axilla demonstrates a 6 x 6mm oval probable lymph node at 10 o'clock, 6 month follow up recommended as a precautionary measure. These results were verbally communicated with the patient and result sheet given to the patient on 08/29/17. ASSESSMENT: Probably benign, BI-RAD 3 RECOMMENDATION: Ultrasound of the right breast in 6 months.
== END | disposition home or self-care (01) ==
LOC: RADMAMWWP 13:40
PROVIDERS: ATTEND Family Medicine
DX: R92.8 Other abnormal and inconclusive findings on diagnostic imaging of breast (principal)
CPT/HCPCS: 77065

== ENCOUNTER → 2018-03-03 | Outpatient (CLI) | payer BC ==
--- NOTE | 2018-03-03 10:09 | USB ---
Reason for exam: follow-up at short interval from prior study. History: Patient is postmenopausal. Family history of breast cancer in maternal aunt at age 50 and breast cancer in 2 paternal cousins. Physical Findings: Nurse did not find any significant physical abnormalities on exam. US Breast RT Right complete breast ultrasound includes all four quadrants, the retroareolar region and axilla. Finding demonstrates a 0.5 x 0.2 x 0.6cm lesion too small to characterize at 7 o'clock, possible prominent lobule, if interval growth in 6 months then biopsy would be recommended and a 0.6 x 0.5 x 0.6cm probable node at 10 o'clock. These results were verbally communicated with the patient and result sheet given to the patient on 03/03/18. ASSESSMENT: Probably benign, BI-RAD 3 RECOMMENDATION: Ultrasound of the right breast in 6 months. (7 o'clock)
== END ==
LOC: RADUSWWP 08:49
PROVIDERS: ATTEND Family Medicine
DX: R92.2 Inconclusive mammogram (principal)

== ENCOUNTER → 2018-04-07 | Outpatient (CLI) | payer BC ==
--- NOTE | 2018-04-07 12:52 | MR ---
EXAMINATION TYPE: MR brain/cspine wo/w DATE OF EXAM: 04/07/2018 COMPARISON: None HISTORY: Headache, dizziness, neck and shoulder pain TECHNIQUE: Multiplanar, multisequence images of the brain and brainstem, cervical spine is performed without and with IV contrast, utilizing 10 mL intravenous Gadavist . FINDINGS: Brain: Diffusion weighted images demonstrate no evidence of a recent infarct or other diffusion abnor mality. There is no extra-axial fluid collection. Scattered hyperintensities are present within the subcortical and juxtacortical, periventricular and pericallosal white matter on inversion recovery an d T2-weighted sequences. There are approximately 20-30 lesions, the largest on axial image 16 measure s 6 to 7 mm in the left temporal lobe. The ventricular system and cisternal spaces are normal in size and appearance. The brain volume is age appropriate. Choroidal fissure cysts noted on the left grea ter than right. Midline structures demonstrate normal morphology. The craniocervical junction appears within normal limits. Post contrast images demonstrate no abnormal enhancement. The dural venous sinuses appear pa tent. The visualized sinuses are remarkable for possible mucus retention cysts or polyps within the m axillary sinuses, inflammatory change in the ethmoid air cells and the globes are intact. Cervical spine: Cervical cord signal is maintained. Cervical vertebral bodies show preserved height, alignment, and bone marrow signal. There is multilevel spondylosis. Loss of disc height present great est at C4-5, C5-6 greater than 4, C6-7. C2-3: Within normal limits C3-4: No significant central canal stenosis. Small left posterior paracentral disc bulge causes sligh t anterior mass effect on the thecal sac. No significant foraminal encroachment. 4 5: Posterior extension of endplate disc complex causes mild anterior mass effect on the thecal sac. Lateral extension of endplate disc complex is causes foraminal encroachment right greater than left. C5-6: Posterior extension of endplate disc complex causes mild anterior mass effect on the thecal sac , mild central stenosis. Lateral extension endplate disc complex causes foraminal encroachment left g reater than right. C6-7: Posterior broad-based disc bulge causes mild anterior mass effect on the thecal sac. No signifi cant central stenosis or foraminal encroachment. No abnormal enhancement following contrast administration. IMPRESSION: Nonspecific white matter demyelination, correlate for possible multiple sclerosis in the appropriate clinical setting, vasculitis, Lyme disease, hypertension, migraine headaches also within the differential. Multilevel degenerative disc disease.
== END | disposition home or self-care (01) ==
LOC: RADMRIMAIN 10:18
PROVIDERS: ATTEND Psychiatry & Neurology Neurology
DX: G37.8 Other specified demyelinating diseases of central nervous system (principal)
CPT/HCPCS: 82565; 70553; 72156; A9585

== ENCOUNTER → 2018-04-11 | Outpatient (CLI) | payer BC ==
[2018-04-11 09:28] LABS: Basophils # (A) 0.1 k/uL (0-0.2); Basophils % (A) 1 %; Eosinophils # (A) 0.7 k/uL (0-0.7); Eosinophils % (A) 7 %; HCT 38.7 % (34.0-46.0); HGB 12.7 gm/dL (11.4-16.0); Lymphocytes # (A) 2.9 k/uL (1.0-4.8); Lymphocytes % (A) 31 %; MCH 27.9 pg (25.0-35.0); MCHC 32.9 g/dL (31.0-37.0); MCV 84.9 fL (80.0-100.0); Mean Platelet Volume 6.1; Monocytes # (A) 0.3 k/uL (0-1.0); Monocytes % (A) 4 %; Neutrophils # (A) 4.9 k/uL (1.3-7.7); Neutrophils % (A) 54 %; Platelet Count 253 k/uL (150-450); RBC 4.55 m/uL (3.80-5.40); RDW 13.5 % (11.5-15.5); WBC 9.1 k/uL (3.8-10.6)
[2018-04-11 17:53] LABS: Albumin 4.3 g/dL (3.80-4.90); Albumin/Globulin Ratio 2.26 (1.20-2.10); Anion Gap 10.6 mmol/L (4.00-12.00); Calcium 9.2 mg/dL (8.7-10.3); Carbon Dioxide 30.4 mmol/L (21.6-31.8); Globulin 1.9 g/dL (1.6-3.3); LDL Cholesterol,Calculated 88.4 mg/dL (0.0-131.0); Potassium 3.5 mmol/L (3.5-5.5); Total Bilirubin 0.6 mg/dL (0.3-1.2); Total Protein 6.2 g/dL (6.2-8.2); VLDL Calculation 48.6 mg/dL (5.00-40.00)
[2018-04-11 19:13] LABS: Hemoglobin A1C 5.7 % (4.0-6.0)
== END ==
LOC: LABWHC1 07:57
PROVIDERS: ATTEND Family Medicine
DX: E78.2 Mixed hyperlipidemia (principal); R07.9 Chest pain, unspecified; R20.2 Paresthesia of skin
CPT/HCPCS: 36415; 80053; 80061; 83036; 84443; 85025

== ENCOUNTER 2018-05-13 07:29 | Day surgery (SDC) | payer BC ==
[2018-05-09 10:15] VITALS: BMI 37.8
[~2018-05-13 07:29] MED LIST changes: -LACTATED RINGERS 1,000 ML IV SCH; +SODIUM CHLORIDE 0.9% 500 ML 500 ML IV SCH
[2018-05-13 08:08] VITALS: TEMP 97.9
[2018-05-13] MEDS ORDERED: LACTATED RINGERS 1,000 ML IV ONE (08:14)
[2018-05-13] MEDS ORDERED: LIDOCAINE 1% 20 ML VIAL (10MG/ML) FOR IV START INTRADERMA ONE (08:15)
--- NOTE | 2018-05-13 08:34 | P.PCN ---
Date of Procedure: 05/13/18 Procedure(s) Performed: Preoperative diagnosis: Demyelinating disease Post operative diagnoses: Demyelinating diseases Anesthesia= moderate sedation with Versed 2 mg and fentanyl 15 g,and local infiltration with lidocaine 1% 2 mL. Condition: stable Complication: none. Description of the procedure procedure risk and benefits discussed with the patient and family, consent signed. Patient in the procedure area placed in sitting position back prepped with chlorhexidine 3 times, sedation was given to decrease patient anxiety, local infiltration of the skin and subcutaneous tissue with lidocaine 1% 2 mL for skin and subcu interstitial frustrations at L3 -4 levels then 22-gauge Quincke-type needle advanced slowly at L3-4 interlaminar space there was positive cerebrospinal fluid which was clear, no heme, no paresthesia ,total of 8 ML of clear cerebrospinal fluid collected in 4 different tubes 2 mL in each, then the needle removed and a Band-Aid applied and patient tolerated the procedure well without any complications.
[2018-05-13] MEDS ORDERED: IV FLUID CONTINUATION 750 ML IV ONE (08:38)
[2018-05-13 08:50] VITALS: RESP 18
[2018-05-13 09:03] VITALS: BP 114/77; PULSE 95
[2018-05-13 09:15] LABS: Glucose,CSF 74 mg/dL (40-70); Total Protein,CSF 58 mg/dL (12-60)
[2018-05-13 09:27] LABS: T4, Free (Free Thyroxine) 0.87 ng/dL (0.78-2.19)
[2018-05-13 10:30] LABS: Appearance,CSF Clear
[2018-05-13 10:31] LABS: CSF Tube Number 4; CSF Tube Volume 2.2; Nucleated Cells, CSF 0 u/L (0-5); Red Blood Cell,CSF 0 u/L (0-10)
[2018-05-13 16:38] LABS: DNA Double-Stranded NEGATIVE (NEGATIVE); RNP <0.2 AI
[2018-05-13 17:51] LABS: Rheumatoid Factor 8 IU/mL (0-15)
[2018-05-14 11:37] LABS: APTT 44 Sec(s) (<43); APTT 1:1 Mix 39 Sec(s) (<43); Dilute Russell Viper Venom 40 Sec(s) (<44)
[2018-05-14 12:37] LABS: IgG - CSF 3.4 mg/dL (0.0 - 3.4); IgG/Albumin Index (CSF) 0.47 (0.00 - 0.77)
[2018-05-16 10:19] LABS: VDRL, Qualitative CSF Nonreactive (Nonreactive)
== END 2018-05-13 09:10 | disposition home or self-care (01) ==
LOC: ORPAIN 07:29
PROVIDERS: ATTEND Specialist
DX: G37.9 Demyelinating disease of central nervous system, unspecified (principal); R20.2 Paresthesia of skin
CPT/HCPCS: 86592; 86235 ×3; 84439; 88108; 84157; 82945; 82040; 82042; 82784; 83916; 83873; 84443; 84450; 84460; 85730; 86431; 85613; 89050; 85732; 86618; 86780; 86038; 86225; 87801; 62270; J2250; J3010; 99152

== ENCOUNTER → 2018-12-24 | Outpatient (CLI) | payer BC ==
--- NOTE | 2018-12-24 09:51 | MM ---
Reason for exam: additional evaluation requested from prior study. Last mammogram was performed 1 year and 4 months ago. History: Patient is postmenopausal. Family history of breast cancer in maternal aunt at age 50 and breast cancer in 2 paternal cousins. Physical Findings: Nurse did not find any significant physical abnormalities on exam. MG 3D Diag Mammo W/Cad [facility] Bilateral CC and MLO view(s) were taken. Prior study comparison: August 29, 2017, right breast MG work up mamm w CAD RT. August 20, 2017, bilateral MG screening mammo w CAD. July 17, 2016, bilateral MG screening mammo w CAD. December 25, 2014, bilateral MG screening mammo w CAD. There are scattered fibroglandular densities. No significant new findings when compared with previous films. These results were verbally communicated with the patient and result sheet given to the patient on 12/24/18. ASSESSMENT: Benign, BI-RAD 2 RECOMMENDATION: Routine screening mammogram of both breasts in 1 year.
--- NOTE | 2018-12-24 09:52 | USB ---
Reason for exam: follow-up at short interval from prior study. History: Patient is postmenopausal. Family history of breast cancer in maternal aunt at age 50 and breast cancer in 2 paternal cousins. US Breast Limited RT Right limited breast ultrasound including focal area of concern, retroareolar and axilla demonstrates a 0.6 x 0.4 x 0.2cm cystic lesion at 7 o'clock. These results were verbally communicated with the patient and result sheet given to the patient on 12/24/18. ASSESSMENT: Benign, BI-RAD 2 RECOMMENDATION: Routine screening mammogram of both breasts in 1 year.
== END ==
LOC: RADMAMWWP 08:10
PROVIDERS: ATTEND Family Medicine
DX: N63.10 Unspecified lump in the right breast, unspecified quadrant (principal); N60.09 Solitary cyst of unspecified breast
CPT/HCPCS: 77062; 77066

== ENCOUNTER → 2019-04-21 | Outpatient (CLI) | payer BC ==
[2019-04-21 08:53] LABS: Basophils % (A) 0 %; Eosinophils # (A) 0.6 k/uL (0-0.7); Eosinophils % (A) 6 %; HCT 41.7 % (34.0-46.0); HGB 13.5 gm/dL (11.4-16.0); Lymphocytes # (A) 3.3 k/uL (1.0-4.8); Lymphocytes % (A) 34 %; MCH 27.4 pg (25.0-35.0); MCHC 32.4 g/dL (31.0-37.0); MCV 84.6 fL (80.0-100.0); Mean Platelet Volume 6.9; Monocytes # (A) 0.4 k/uL (0-1.0); Monocytes % (A) 4 %; Neutrophils # (A) 5.4 k/uL (1.3-7.7); Neutrophils % (A) 54 %; Platelet Count 238 k/uL (150-450); RBC 4.93 m/uL (3.80-5.40); WBC 9.9 k/uL (3.8-10.6)
[2019-04-21 17:14] LABS: African American GFR (CKD) 97.6 (60.0-200.0); Albumin 4.4 g/dL (3.80-4.90); Albumin/Globulin Ratio 2.2 (1.60-3.17); Anion Gap 8.7 mmol/L (4.00-12.00); BUN/Creat Ratio 21.25 Ratio (12.00-20.00); Calcium 9.6 mg/dL (8.7-10.3); Carbon Dioxide 32.3 mmol/L (21.6-31.8); Chol/HDL Ratio 3.48; Non-African American GFR(CKD) 84.2 (60.0-200.0); Potassium 3.5 mmol/L (3.5-5.5); Total Bilirubin 0.6 mg/dL (0.2-1.2); Total Protein 6.4 g/dL (6.2-8.2); Uric Acid 6.5 mg/dL (2.9-7.7)
[2019-04-21 17:21] LABS: T4, Free (Free Thyroxine) 1.1 ng/dL (0.80-1.80)
[2019-04-21 19:17] LABS: Hemoglobin A1C 5.8 % (4.0-6.0)
== END | disposition home or self-care (01) ==
LOC: LABWHC1 08:07
PROVIDERS: ATTEND Family Medicine
DX: I10 Essential (primary) hypertension (principal); L72.3 Sebaceous cyst; R73.03 Prediabetes; E78.2 Mixed hyperlipidemia; N60.01 Solitary cyst of right breast
CPT/HCPCS: 36415; 80053; 80061; 83036; 84439; 84443; 84550; 85025

== ENCOUNTER → 2019-11-13 | Outpatient (CLI) | payer BC ==
--- NOTE | 2019-11-13 16:09 | XR ---
EXAMINATION TYPE: XR clavicle RT DATE OF EXAM: 11/13/2019 COMPARISON: NONE HISTORY: Lump, swelling. No known injury. TECHNIQUE: 2 radiographic views of the right clavicle are obtained. FINDINGS: There is no evidence of acute fracture or dislocation. The acromioclavicular joint is withi n normal limits. No aggressive osseous destructive lesion. The overlying soft tissue is unremarkable. IMPRESSION: Unremarkable radiograph of the right clavicle.
== END | disposition home or self-care (01) ==
LOC: RADXRMAIN 10:07
PROVIDERS: ATTEND Family Medicine
DX: R22.0 Localized swelling, mass and lump, head (principal)

== ENCOUNTER → 2020-03-10 | Outpatient (CLI) | payer BC ==
--- NOTE | 2020-03-14 11:17 | MM ---
Reason for exam: screening (asymptomatic). Last mammogram was performed 1 year and 2 months ago. History: Patient is postmenopausal. Family history of breast cancer in maternal aunt at age 50 and breast cancer in 2 paternal cousins. Physical Findings: A clinical breast exam by your physician is recommended on an annual basis and results should be correlated with mammographic findings. MG 3D Screening Mammo W/Cad Bilateral CC and MLO view(s) were taken. Prior study comparison: December 24, 2018, bilateral MG 3d diag mammo w/cad [facility]. August 29, 2017, right breast MG work up mamm w CAD RT. There are scattered fibroglandular densities. No significant changes when compared with prior studies. ASSESSMENT: Benign, BI-RAD 2 RECOMMENDATION: Routine screening mammogram of both breasts in 1 year.
== END | disposition home or self-care (01) ==
LOC: RADMAMWWP 09:14
PROVIDERS: ATTEND Family Medicine
DX: Z12.31 Encounter for screening mammogram for malignant neoplasm of breast (principal)
CPT/HCPCS: 77063; 77067

== ENCOUNTER → 2021-01-04 | Outpatient (CLI) | payer BC ==
[2021-01-04 11:15] LABS: Basophils # (A) 0.06 X 10*3/uL (0.00-0.10); Basophils % (A) 0.6 %; Eosinophils # (A) 0.41 X 10*3/uL (0.04-0.35); Eosinophils % (A) 4.3 %; HCT 38.7 % (37.2-46.3); Lymphocytes # (A) 3.33 X 10*3/uL (0.90-5.00); Lymphocytes % (A) 35.1 %; MCHC 33.6 g/dL (32.0-37.0); MCV 83.4 fL (80.0-97.0); Mean Platelet Volume 9.7 fL (9.5-12.2); Monocytes # (A) 0.55 X 10*3/uL (0.20-1.00); Monocytes % (A) 5.8 %; Neutrophils # (A) 5.07 X 10*3/uL (1.80-7.70); Neutrophils % (A) 53.4 %; Platelet Count 245 X 10*3/uL (140-440); RBC 4.64 X 10*6/uL (4.10-5.20); RDW 12.8 % (11.5-14.5)
[2021-01-05 14:25] LABS: African American GFR (CKD) 94.3 (60.0-200.0); Albumin 4.2 g/dL (3.8-4.9); Albumin/Globulin Ratio 1.65 (1.60-3.17); Anion Gap 19.1 mmol/L (4.00-12.00); BUN/Creat Ratio 22.88 Ratio (12.00-20.00); Blood Urea Nitrogen 18.6 mg/dL (9.0-27.0); Calcium 9.3 mg/dL (8.7-10.3); Carbon Dioxide 21.7 mmol/L (21.6-31.8); Chol/HDL Ratio 4.28 Ratio; Globulin 2.6 g/dL (1.6-3.3); HDL Cholesterol 43.9 mg/dL (40.00-60.00); LDL Cholesterol,Calculated 89.7 mg/dL (0.0-131.0); Non-African American GFR(CKD) 81.4 (60.0-200.0); Potassium 3.4 mmol/L (3.5-5.5); Total Bilirubin 0.4 mg/dL (0.30-1.20); Total Protein 6.8 g/dL (6.2-8.2); VLDL Calculation 54.4 mg/dL (5.00-40.00)
== END | disposition home or self-care (01) ==
LOC: LABWHC1 07:20
PROVIDERS: ATTEND Family Medicine
DX: E11.65 Type 2 diabetes mellitus with hyperglycemia (principal); I10 Essential (primary) hypertension; E78.2 Mixed hyperlipidemia
CPT/HCPCS: 36415; 80053; 80061; 82550; 83036; 84443; 85025

== ENCOUNTER 2021-02-18 09:54 | Emergency (ER) | payer BC ==
[2021-02-18 10:08] VITALS: TEMP 97
[2021-02-18] MEDS ORDERED: DEXAMETHASONE SOD PHOSPHATE 10 MG/ML 1 ML VIAL IM STA (10:56)
--- NOTE | 2021-02-18 11:10 | ED ---
URI HPI - General Chief Complaint: Upper Respiratory Infection Stated Complaint: Cough, Sore throat Time Seen by Provider: 02/18/21 10:52 Source: patient, RN notes reviewed Mode of arrival: ambulatory Limitations: no limitations - History of Present Illness Initial Comments: Patient is a 55-year-old female that presents to the emergency department compl aining of sore swollen throat for the past several days. She notes that her recently had a similar episode. She notes she came emergently get evaluated as it feels like her tonsils are very swollen and blocking her throat. She denied any difficulty eating or drinking just has a feeling like her throat is swollen. Patient was otherwise well-appearing in no apparent distress. She denied chest pain shortness of breath headache nausea vomiting diarrhea constipation fever fatigue chills. - Related Data Home Medications Medication Instructions Recorded Confirmed Cholecalciferol [Vitamin D3 (25 5,000 unit PO DAILY 04/17/16 05/13/18 Mcg = 1000 Iu)] Cyanocobalamin [Vitamin B-12] 1,000 mcg PO DAILY 04/17/16 05/13/18 Aspirin [Adult Low Dose Aspirin EC] 81 mg PO DAILY 05/09/18 05/13/18 Chlorthalidone 25 mg PO DAILY 05/09/18 05/13/18 Doxepin HCl 50 mg PO HS 05/09/18 05/13/18 Losartan Potassium 100 mg PO DAILY 05/09/18 05/13/18 Pravastatin Sodium [Pravachol] 40 mg PO HS 05/09/18 05/13/18 Previous Rx's Medication Instructions Recorded Azithromycin [Zithromax] 500 mg PO DAILY #5 tab 02/18/21 Allergies Allergy/AdvReac Type Severity Reaction Status Date / Time amoxicillin [From Augmentin] Allergy Anaphylaxis Verified 02/18/21 10:08 ascorbic acid Allergy Anaphylaxis Verified 02/18/21 10:08 [From Emergen-C Vitamin D-Calcium] calcium combination no.27 Allergy Anaphylaxis Verified 02/18/21 10:08 [From Emergen-C Vitamin D-Calcium] clavulanic acid Allergy Anaphylaxis Verified 02/18/21 10:08 [From Augmentin] codeine Allergy Nausea & Verified 02/18/21 10:08 Vomiting multivitamin with minerals Allergy Anaphylaxis Verified 02/18/21 10:08 [From Emergen-C Vitamin D-Calcium] TEGADERM Allergy Rash/Hives Uncoded 02/18/21 10:08 Review of Systems ROS Statement: Those systems with pertinent positive or pertinent negative responses have been documented in the HPI. ROS Other: All systems not noted in ROS Statement are negative. Past Medical History Past Medical History: Hyperlipidemia, Hypertension History of Any Multi-Drug Resistant Organisms: None Reported Past Surgical History: Back Surgery, Section, Hysterectomy Additional Past Surgical History / Comment(s): BACK FUSION L4/L5 Past Anesthesia/Blood Transfusion Reactions: Postoperative Nausea & Vomiting (PONV) Past Psychological History: Anxiety Smoking Status: Never smoker Past Alcohol Use History: Rare Past Drug Use History: None Reported - Past Family History Mother Family Medical History: No Reported History General Exam Limitations: no limitations General appearance: alert, in no apparent distress, obese Head exam: Present: atraumatic, normocephalic, normal inspection Eye exam: Present: normal appearance, PERRL, EOMI. Absent: scleral icterus, conjunctival injection, periorbital swelling ENT exam: Present: normal exam, mucous membranes moist. Absent: normal oropharynx (Erythematous, bilateral tonsil swollen.) Neck exam: Present: normal inspection. Absent: tenderness, lymphadenopathy Respiratory exam: Present: normal lung sounds bilaterally. Absent: respiratory distress, wheezes, rales, rhonchi, stridor Cardiovascular Exam: Present: regular rate, normal rhythm, normal heart sounds. Absent: systolic murmur, diastolic murmur, rubs, gallop, clicks GI/Abdominal exam: Present: soft, normal bowel sounds. Absent: distended, tenderness, guarding, rebound, rigid Extremities exam: Present: normal inspection, full ROM, normal capillary refill. Absent: tenderness, pedal edema, joint swelling, calf tenderness Neurological exam: Present: alert, oriented X3 Psychiatric exam: Present: normal affect, normal mood Skin exam: Present: warm, dry, intact, normal color. Absent: rash Course Vital Signs 02/18/21 10:05 Temperature 97 F L Pulse Rate 101 H Respiratory 18 Rate Blood Pressure 137/78 O2 Sat by Pulse 97 Oximetry Medical Decision Making - Medical Decision Making 55-year-old female complaining of a sore swollen throat for the past several days. Covid test, strep test, 10 mg of Decadron ordered. Covid and strep test negative. Patient most likely has tonsillitis. Antibiotics will be sent to pharmacy. Case discussed with Dr. Sb, patient can discharge home. - Lab Data Lab Results 02/18/21 02/18/21 Range/Units 10:50 12:22 Coronavirus (PCR) Not Detected (Not Detectd) Group A Strep Rapid Negative (Negative) Disposition Clinical Impression: Tonsillitis Disposition: HOME SELF-CARE Condition: Stable Instructions (If sedation given, give patient instructions): Tonsillitis (ED) Additional Instructions: Please return to the Emergency Department if symptoms worsen or any other concerns. Follow-up with primary care in 1-2 days. Take antibiotics as prescribed. Prescriptions: Azithromycin [Zithromax] 500 mg PO DAILY #5 tab Is patient prescribed a controlled substance at d/c from ED?: No Referrals: Sachi Beckham MD [Primary Care Provider] - 1-2 days Time of Disposition: 13:20
[2021-02-18 13:55] VITALS: BP 144/87; PULSE 79; RESP 20
== END 2021-02-18 13:55 | disposition home or self-care (01) ==
LOC: EC 09:54
DX: J03.90 Acute tonsillitis, unspecified (principal); E78.5 Hyperlipidemia, unspecified; I10 Essential (primary) hypertension; F41.9 Anxiety disorder, unspecified; Z79.899 Other long term (current) drug therapy; Z72.89 Other problems related to lifestyle
CPT/HCPCS: 87081; 87430; 87635; 99283; 96372; J1100

== ENCOUNTER → 2021-09-13 | Outpatient (CLI) | payer BC ==
--- NOTE | 2021-09-14 16:43 | BD ---
EXAMINATION TYPE: Axial Bone Density DATE OF EXAM: 09/13/2021 COMPARISON: NONE CLINICAL HISTORY: 55 years year old Female. ICD-10 CODE: Z78.0 POST MENOPAUSAL WITHOUT HRT Height: 66 Weight: 231.9 FRAX RISK QUESTIONS: Alcohol (3 or more units per day): NO Family History (Parent hip fracture): NO Glucocorticoids (More than 3mos): NO History of Fracture in Adulthood: NO Secondary Osteoporosis: 1. Type 1 Diabetes: NO 2. Hyperthyroidism: NO 3. Menopause before 45: NO 4. Malnutrition: NO 5. Chronic liver disease: NO Rheumatoid Arthritis: NO Current Tobacco Use: NO RISK FACTORS HISTORY OF: Hip Fracture (Right/Left): NO Spine Fracture: NO History of Wrist Fracture: NO Surgery to Spine/Hip(right/left)/Wrist (right/left): YES, L4-L5 When: AGE 36 Family History of Osteoporosis: NO Active: NO Diet low in dairy products/other sources of calcium: NO Postmenopausal woman: YES Take estrogen and/or progesterone medications: NO Lost more than 2 inches in height since high school: NO Frequent falls: NO Poor Health: NO Hyperparathyroidism: NO Adrenal Insufficiency: NO MEDICATIONS: Prednisone or other steroids: NO Thyroid Medications:NO Osteoporosis Medications: NO Additional Medications: BP MEDS, CHOLESTEROL MEDS, METFORMIN, VIT D, VIT B, MAGNESIUM, ZINC, FISH OIL TUMERIC, Additional History: EXAM MEASUREMENTS: Bone mineral density about the R hip (g/cm2): 1.223 Bone mineral density about the L hip (g/cm2): 1.209 T Score values are as follows: -----R Neck: 1.3 -----L Neck: 1.2 -----R Total: 2.7 -----L Total: 2.5 BASELINE STUDY FRAX%s: The graph provided illustrates a 4.2% chance for a major osteoporotic fx and a 0.0% chance fo r the hips probability for fx in 10 years time. IMPRESSION: Normal (Values between +1 and -1 indicate normal bone mass). Consider repeating this study in 5 year s or sooner if there is some new clinical indication. NOTE: T-SCORE=SD OF THE YOUNG ADULT MEAN.
--- NOTE | 2021-09-15 07:45 | MM ---
Reason for Exam: Screening (asymptomatic). Last mammogram was performed 1 year(s) and 6 month(s) ago. Patient History: Menarche at age 13. First Full-Term at age 23. Hysterectomy at age 33. Postmenopausal. Paternal cousin had breast cancer. Paternal cousin had breast cancer. Maternal aunt had breast cancer, age 50. Risk Values: Elyse 5 year model risk: 1.1%. NCI Lifetime model risk: 7.4%. Prior Study Comparison: 08/29/2017 Right Diagnostic Mammogram, [facility]. 12/24/2018 Bilateral Diagnostic Mammogram, [facility]. 03/10/2020 Bilateral Screening Mammogram, [facility]. Tissue Density: The breast tissue is heterogeneously dense. This may lower the sensitivity of mammography. Findings: Analyzed By CAD. There is no suspicious group of microcalcifications or new suspicious mass in either breast. Overall Assessment: Negative, BI-RAD 1 Management: Screening Mammogram of both breasts in 1 year. A clinical breast exam by your physician is recommended on an annual basis and results should be correlated with mammographic findings. Electronically signed and approved by: Hollis Ricks M.D. Radiologis
== END | disposition home or self-care (01) ==
LOC: RADMAMWWP 15:46
PROVIDERS: ATTEND Family Medicine
DX: Z12.31 Encounter for screening mammogram for malignant neoplasm of breast (principal); Z78.0 Asymptomatic menopausal state; Z80.3 Family history of malignant neoplasm of breast
CPT/HCPCS: 77063; 77067; 77080

== ENCOUNTER → 2023-03-22 | Outpatient (CLI) | payer BC ==
--- NOTE | 2023-03-22 14:35 | USB ---
Reason for Exam: Clinical finding. Patient History: Menarche at age 13. First Full-Term at age 23. Hysterectomy at age 33. Postmenopausal. Paternal cousin had breast cancer. Paternal cousin had breast cancer. Maternal aunt had breast cancer, age 50. Risk Values: Elyse 5 year model risk: 1.1%. NCI Lifetime model risk: 7.1%. Technique: Method: Targeted. Prior Study Comparison: 12/24/2018 Bilateral Diagnostic Mammogram, [facility]. 03/10/2020 Bilateral Screening Mammogram, [facility]. 09/13/2021 Bilateral MG 3D screening mammo w/cad, [facility]. Findings: The lateral section of the breast of the left breast, the axilla of the left breast and the retroareolar of the left breast were scanned. Targeted ultrasound lateral aspect of the left breast from 1:00 to 4:00 including the subareolar region and axilla. No solid or cystic lesion or axillary lymphadenopathy is seen. Overall Assessment: Negative, BI-RAD 1 Management: Screening Mammogram of both breasts in 1 year. Further clinical management of the physician palpated area along the lateral aspect of the left breast. There is no mammographic or sonographic correlate to the clinical finding. Patient should continue monthly self breast exams and these results should not preclude additional follow-up of suspicious palpable abnormalities. Results were given to the patient verbally at the time of exam. Electronically signed and approved by: Dipak Dhaliwal M.D. Radiologist
== END | disposition home or self-care (01) ==
LOC: RADMAMWWP 13:34
PROVIDERS: ATTEND Family Medicine
DX: N63.20 Unspecified lump in the left breast, unspecified quadrant (principal); Z78.0 Asymptomatic menopausal state; Z80.3 Family history of malignant neoplasm of breast

== ENCOUNTER → 2023-03-29 | Outpatient (CLI) | payer BC ==
--- NOTE | 2023-03-29 17:18 | XR ---
EXAMINATION TYPE: XR finger RT DATE OF EXAM: 03/29/2023 2:04 PM CLINICAL INDICATION:Female, 57 years old with history of M65.9; [facility] COMPARISON: None TECHNIQUE: XR finger RT Frontal, lateral and oblique views were obtained. FINDINGS/IMPRESSION: 1. Periarticular lucencies predominantly involving the second digit proximal interphalangeal joint. Finding could represent crystalline arthropathy versus inflammatory arthropathy with septic joint non tender excluded. 2. There is severe degeneration changes of the distal interphalangeal joint with a osteoarthrosis ap pearance.
== END | disposition home or self-care (01) ==
LOC: RADXRMAIN 13:43
PROVIDERS: ATTEND Family Medicine
DX: M19.041 Primary osteoarthritis, right hand (principal); M24.841 Other specific joint derangements of right hand, not elsewhere classified; M65.9 Synovitis and tenosynovitis, unspecified

== ENCOUNTER → 2023-04-26 | Outpatient (CLI) | payer BC ==
[2023-04-26 15:35] LABS: Basophils # (A) 0.04 X 10*3/uL (0.00-0.10); Basophils % (A) 0.5 %; Eosinophils # (A) 0.27 X 10*3/uL (0.04-0.35); Eosinophils % (A) 3.4 %; HCT 40.5 % (37.2-46.3); HGB 13.5 g/dL (12.0-15.0); Lymphocytes % (A) 35.6 %; MCH 27.7 pg (27.0-32.0); MCHC 33.3 g/dL (32.0-37.0); Mean Platelet Volume 9.5 FL (9.5-12.2); Monocytes # (A) 0.37 X 10*3/uL (0.20-1.00); Monocytes % (A) 4.7 %; NRBC Per 100 WBC 0 X 10*3/uL (0.00-0.01); Neutrophils # (A) 4.36 X 10*3/uL (1.80-7.70); Neutrophils % (A) 55.5 %; Platelet Count 262 X 10*3/uL (140-440); RBC 4.88 X 10*6/uL (4.10-5.20); WBC 7.86 X 10*3/uL (4.50-10.00)
[2023-04-26 15:51] LABS: Appearance,Urine Cloudy (Clear); Bilirubin,Urine Negative (Negative); Blood,Urine Negative (Negative); Color,Urine Yellow (Yellow); Ketones,Urine Trace (Negative); Nitrite,Urine Negative (Negative); Specific Gravity,Urine 1.025 (1.001-1.030)
[2023-04-26 16:15] LABS: Albumin 4.3 g/dL (3.8-4.9); Protein, Total 6.7 g/dL (6.2-8.2)
[2023-04-26 16:23] LABS: ALT 21 U/L (8-44); AST 15 U/L (13-35); Albumin 4.3 g/dL (3.8-4.9); Albumin/Globulin Ratio 1.79 Ratio (1.60-3.17); Alkaline Phosphatase 74 U/L (41-126); Blood Urea Nitrogen 26.2 mg/dL (9.0-27.0); Calcium 9.4 mg/dL (8.7-10.3); Carbon Dioxide 26.8 mmol/L (21.6-31.8); Chloride 104 mmol/L (96-109); Chol/HDL Ratio 3.37 Ratio; Globulin 2.4 g/dL (1.6-3.3); Glucose 127 mg/dL (70-110); LDL Cholesterol,Calculated 74.2 mg/dL (0.0-131.0); Potassium 3.7 mmol/L (3.5-5.5); Sodium 142 mmol/L (135-145); Total Bilirubin 0.4 mg/dL (0.3-1.2); Total Protein 6.7 g/dL (6.2-8.2); Uric Acid 8.1 mg/dL (2.9-7.7)
[2023-04-26 17:07] LABS: Bacteria,Urine 2+ (None Seen)
[2023-04-26 19:11] LABS: Microalbumin Creatinine Ratio <6 mg/g Cr (0-30)
[2023-04-26 22:15] LABS: Cyclic Citrull Pep IgG Unit <1.5 U/mL (<=3.9); Cyclic Citrullinated Pep IgG Negative
[2023-04-29 10:42] LABS: Free Kappa Lt Chain Qnt, Serum 2.67 mg/dL (0.33-1.94); Free Lambda Lt Chain Qnt, Seru 1.56 mg/dL (0.57-2.63)
== END | disposition home or self-care (01) ==
LOC: LABWHC1 08:43
PROVIDERS: ATTEND Family Medicine
DX: I10 Essential (primary) hypertension (principal); M65.9 Synovitis and tenosynovitis, unspecified; N63.20 Unspecified lump in the left breast, unspecified quadrant; E11.65 Type 2 diabetes mellitus with hyperglycemia; E78.2 Mixed hyperlipidemia
CPT/HCPCS: 36415; 80053; 80061; 81001; 82043; 82164; 82570; 83036; 83883; 83970; 84165; 84443; 84550; 85025; 86038; 86200; 86334; 86618

== ENCOUNTER → 2023-10-11 | Outpatient (CLI) | payer BC ==
[2023-10-11 15:51] LABS: ALT 15 U/L (8-44); AST 15 U/L (13-35); Albumin 4.6 g/dL (3.8-4.9); Albumin/Globulin Ratio 1.92 Ratio (1.60-3.17); Alkaline Phosphatase 99 U/L (41-126); BUN/Creat Ratio 24.22 Ratio (12.00-20.00); Blood Urea Nitrogen 21.8 mg/dL (9.0-27.0); Calcium 9.7 mg/dL (8.7-10.3); Carbon Dioxide 25.6 mmol/L (21.6-31.8); Chloride 106 mmol/L (96-109); Chol/HDL Ratio 3.12 Ratio; Globulin 2.4 g/dL (1.6-3.3); Glucose 98 mg/dL (70-110); LDL Cholesterol,Calculated 90.2 mg/dL (0.0-131.0); Potassium 4.6 mmol/L (3.5-5.5); Sodium 143 mmol/L (135-145); T4, Free (Free Thyroxine) 1.32 ng/dL (0.80-1.80); Total Bilirubin 0.6 mg/dL (0.3-1.2); Uric Acid 4.3 mg/dL (2.9-7.7)
[2023-10-11 16:03] LABS: Basophils # (A) 0.06 X 10*3/uL (0.00-0.10); Basophils % (A) 0.8 %; Eosinophils # (A) 0.26 X 10*3/uL (0.04-0.35); Eosinophils % (A) 3.3 %; HCT 43.2 % (37.2-46.3); HGB 14.2 g/dL (12.0-15.0); Lymphocytes # (A) 2.64 X 10*3/uL (0.90-5.00); Lymphocytes % (A) 33.6 %; MCH 27.8 pg (27.0-32.0); MCHC 32.9 g/dL (32.0-37.0); MCV 84.5 FL (80.0-97.0); Mean Platelet Volume 9.4 FL (9.5-12.2); Monocytes # (A) 0.44 X 10*3/uL (0.20-1.00); Monocytes % (A) 5.6 %; NRBC Per 100 WBC 0 X 10*3/uL (0.00-0.01); Neutrophils # (A) 4.41 X 10*3/uL (1.80-7.70); Neutrophils % (A) 56.2 %; Platelet Count 266 X 10*3/uL (140-440); RBC 5.11 X 10*6/uL (4.10-5.20); RDW 13.2 % (11.5-14.5); WBC 7.85 X 10*3/uL (4.50-10.00)
== END | disposition home or self-care (01) ==
LOC: LABWHC1 09:50
PROVIDERS: ATTEND Family Medicine
DX: E11.65 Type 2 diabetes mellitus with hyperglycemia (principal); I10 Essential (primary) hypertension; M11.9 Crystal arthropathy, unspecified; E78.2 Mixed hyperlipidemia
CPT/HCPCS: 36415; 80053; 80061; 83036; 84439; 84443; 84550; 85025

== ENCOUNTER → 2024-02-26 | Outpatient (CLI) | payer BC ==
[2024-02-26 10:24] LABS: Basophils # (A) 0.06 X 10*3/uL (0.00-0.10); Basophils % (A) 0.7 %; Eosinophils # (A) 0.37 X 10*3/uL (0.04-0.35); Eosinophils % (A) 4.4 %; HCT 41.5 % (37.2-46.3); HGB 13.8 g/dL (12.0-15.0); Lymphocytes # (A) 2.62 X 10*3/uL (0.90-5.00); Lymphocytes % (A) 31.2 %; MCH 27.8 pg (27.0-32.0); MCHC 33.3 g/dL (32.0-37.0); MCV 83.5 FL (80.0-97.0); Mean Platelet Volume 9.2 FL (9.5-12.2); Monocytes # (A) 0.47 X 10*3/uL (0.20-1.00); Monocytes % (A) 5.6 %; NRBC Per 100 WBC 0 X 10*3/uL (0.00-0.01); Neutrophils # (A) 4.85 X 10*3/uL (1.80-7.70); Neutrophils % (A) 57.6 %; Platelet Count 222 X 10*3/uL (140-440); RBC 4.97 X 10*6/uL (4.10-5.20); RDW 12.9 % (11.5-14.5); WBC 8.41 X 10*3/uL (4.50-10.00)
[2024-02-26 10:32] LABS: Microalbumin Creatinine Ratio <9 mg/g Cr (0-30)
[2024-02-26 10:47] LABS: ALT 14 U/L (8-44); AST 15 U/L (13-35); Albumin 4.2 g/dL (3.8-4.9); Albumin/Globulin Ratio 1.75 Ratio (1.60-3.17); Alkaline Phosphatase 86 U/L (41-126); BUN/Creat Ratio 32.11 Ratio (12.00-20.00); Blood Urea Nitrogen 28.9 mg/dL (9.0-27.0); Carbon Dioxide 22.7 mmol/L (21.6-31.8); Chloride 107 mmol/L (96-109); Chol/HDL Ratio 3.61 Ratio; Globulin 2.4 g/dL (1.6-3.3); Glucose 122 mg/dL (70-110); Potassium 4.1 mmol/L (3.5-5.5); Sodium 140 mmol/L (135-145); Total Bilirubin 0.5 mg/dL (0.3-1.2); Total Protein 6.6 g/dL (6.2-8.2)
[2024-02-26 10:48] LABS: T4, Free (Free Thyroxine) 0.98 ng/dL (0.80-1.80)
== END | disposition home or self-care (01) ==
LOC: LABWHC1 07:04
PROVIDERS: ATTEND Family Medicine
DX: E11.65 Type 2 diabetes mellitus with hyperglycemia (principal); E78.2 Mixed hyperlipidemia
CPT/HCPCS: 36415; 80053; 80061; 82043; 82570; 83036; 84439; 84443; 85025

== ENCOUNTER → 2024-03-27 | Outpatient (CLI) | payer BC ==
--- NOTE | 2024-03-30 09:01 | BD ---
EXAMINATION TYPE: Axial Bone Density DATE OF EXAM: 03/27/2024 CLINICAL HISTORY: 58 years old Female. ICD-10 CODE: M85.9 DISORDER OF BONE DENSITY , Additional Hist ory: Height: 5 ft 4 1/2 in Weight: 209 FRAX RISK QUESTIONS: Alcohol (3 or more units per day): no Family History (Parent hip fracture): no Glucocorticoids (More than 3mos): no (Ex: prednisone, prednisolone, methylprednisolone, dexamethasone, and hydrocortisone). History of Fracture in Adulthood: no Secondary Osteoporosis: 1. Type 1 Diabetes: no 2. Hyperthyroidism: no 3. Menopause before 45: no 4. Malnutrition: no 5. Chronic liver disease: no Rheumatoid Arthritis: no Current Tobacco Use: no RISK FACTORS HISTORY OF: Surgery to Spine/Hip(right/left)/Wrist (right/left): lspine fusion,rt wrist cyst removed When: 28 years ago MEDICATIONS: Thyroid Medications: none Osteoporosis Medications: none EXAM MEASUREMENTS: Bone mineral density about the R hip (g/cm2): 1.147 Bone mineral density about the L hip (g/cm2): 1.229 T Score values are as follows: -----R Neck: 1.4 -----L Neck: 0.8 -----R Total: 2.4 -----L Total: 1.8 Z Score values are as follows: -----R Neck: 1.9 -----L Neck: 1.3 -----R Total: 2.5 -----L Total: 1.9 Bone mineral density has: decreased -5.2 % since study of: 2021 Bone mineral density about the L Wrist (g/cm2): 0.847 T Score values are as follows: -----Dist. R+U: 3.0 -----Prox. R+U: 2.4 -----Radius total: 2.9 Z Score values are as follows: -----Dist. R+U: 3.8 -----Prox. R+U: 3.1 -----Radius total: 3.6 Bone mineral density has: increased 1.1 % since study of: 2018 FRAX%s: The graph provided illustrates a 4.9 % chance for a major osteoporotic fx and a 0.0 % chance for the hips probability for fx in 10 years time. IMPRESSION: Normal (Values between +1 and -1 indicate normal bone mass). Consider repeating this study in 5 year s or sooner if there is some new clinical indication. NOTE: T-SCORE=SD OF THE YOUNG ADULT MEAN. [facility], , 03/30/2024 8:59 AM
--- NOTE | 2024-04-03 19:29 | MM ---
Reason for Exam: Screening (asymptomatic). Last screening mammogram was performed 12 month(s) ago. Patient History: Menarche at age 13. First Full-Term at age 23. Hysterectomy at age 33. Postmenopausal. Paternal cousin had breast cancer. Paternal cousin had breast cancer. Maternal aunt had breast cancer, age 50. Risk Values: Elyse 5 year model risk: 1.2%. NCI Lifetime model risk: 6.9%. Prior Study Comparison: 03/10/2020 Bilateral Screening Mammogram, [facility]. 09/13/2021 Bilateral MG 3D screening mammo w/cad, [facility]. 03/22/2023 Bilateral MG 3D diag mammo w/cad MIL[facility], [facility]. Tissue Density: There are scattered areas of fibroglandular density. Findings: Analyzed By CAD. Chronic nodularity on the left. Asymmetric density lateral right CC view does not persist on 3 images compatible with superimposition shadow. There is no suspicious group of microcalcifications or new suspicious mass in either breast. Overall Assessment: Benign, BI-RAD 2 Management: Screening Mammogram of both breasts in 1 year. . Patient should continue monthly self-breast exams. A clinical breast exam by your physician is recommended on an annual basis. This exam should not preclude additional follow-up of suspicious palpable abnormalities. Note on Elyse scores and lifetime risk: 1. A Elyse score greater than 3% is considered moderate risk. If this is the case, consider specialist referral to assess eligibility for a risk reducing agent. 2. If overall lifetime risk for the development of breast cancer is 20% or higher, the patient may qualify for future screening with alternating mammogram and breast MRI. [facility], , 04/03/2024 6:31 PM. Electronically signed and approved by: Dipak Dhaliwal M.D. Radiologist
== END | disposition home or self-care (01) ==
LOC: RADMAMWWP 15:08
PROVIDERS: ATTEND Family Medicine
DX: Z12.31 Encounter for screening mammogram for malignant neoplasm of breast (principal); M85.9 Disorder of bone density and structure, unspecified; Z78.0 Asymptomatic menopausal state; Z80.3 Family history of malignant neoplasm of breast; R92.323 Mammographic fibroglandular density, bilateral breasts; N63.20 Unspecified lump in the left breast, unspecified quadrant
CPT/HCPCS: 77063; 77067; 77080

== ENCOUNTER → 2024-07-02 | Outpatient (CLI) | payer BC ==
[2024-07-02 10:18] LABS: Basophils # (A) 0.06 X 10*3/uL (0.00-0.10); Basophils % (A) 0.7 %; Eosinophils # (A) 0.38 X 10*3/uL (0.04-0.35); Eosinophils % (A) 4.4 %; HGB 14.2 g/dL (12.0-15.0); Lymphocytes # (A) 2.67 X 10*3/uL (0.90-5.00); MCH 27.5 pg (27.0-32.0); MCV 83.2 FL (80.0-97.0); Mean Platelet Volume 9.4 FL (9.5-12.2); Monocytes # (A) 0.39 X 10*3/uL (0.20-1.00); Monocytes % (A) 4.5 %; NRBC Per 100 WBC 0 X 10*3/uL (0.00-0.01); Neutrophils # (A) 5.08 X 10*3/uL (1.80-7.70); Neutrophils % (A) 59.2 %; Platelet Count 256 X 10*3/uL (140-440); RBC 5.17 X 10*6/uL (4.10-5.20); RDW 12.5 % (11.5-14.5)
[2024-07-02 10:44] LABS: BUN/Creat Ratio 22.38 Ratio (12.00-20.00); Blood Urea Nitrogen 17.9 mg/dL (9.0-27.0); Chol/HDL Ratio 3.82 Ratio; Glucose 125 mg/dL (70-110)
[2024-07-02 10:45] LABS: ALT 16 U/L (8-44); AST 17 U/L (13-35); Albumin 4.1 g/dL (3.8-4.9); Albumin/Globulin Ratio 1.78 Ratio (1.60-3.17); Alkaline Phosphatase 98 U/L (41-126); Calcium 9.3 mg/dL (8.7-10.3); Carbon Dioxide 26.1 mmol/L (21.6-31.8); Chloride 105 mmol/L (96-109); Globulin 2.3 g/dL (1.6-3.3); LDL Cholesterol,Calculated 99.5 mg/dL (0.0-131.0); Potassium 3.9 mmol/L (3.5-5.5); Sodium 141 mmol/L (135-145); T4, Free (Free Thyroxine) 1.21 ng/dL (0.80-1.80); Total Bilirubin 0.5 mg/dL (0.3-1.2); Total Protein 6.4 g/dL (6.2-8.2)
[2024-07-02 19:52] LABS: Microalbumin Creatinine Ratio <8 mg/g Cr (0-30)
== END | disposition home or self-care (01) ==
LOC: LABWHC1 07:24
PROVIDERS: ATTEND Family Medicine
DX: I12.9 Hypertensive chronic kidney disease with stage 1 through stage 4 chronic kidney disease, or unspecified chronic kidney disease (principal); E11.65 Type 2 diabetes mellitus with hyperglycemia; E11.22 Type 2 diabetes mellitus with diabetic chronic kidney disease; N18.9 Chronic kidney disease, unspecified
CPT/HCPCS: 36415; 80053; 80061; 82043; 82570; 83036; 84439; 84443; 85025

== ENCOUNTER → 2024-10-13 | Outpatient (CLI) | payer BC ==
[2024-10-13 15:23] LABS: Cholesterol 145.00 mg/dL (0.00-200.00); HDL Cholesterol 47.80 mg/dL (40.00-60.00); LDL Cholesterol,Calculated 75.6 mg/dL (0.0-131.0); T4, Free (Free Thyroxine) 1.16 ng/dL (0.80-1.80); Triglycerides 108.00 mg/dL (0.00-149.00); VLDL Calculation 21.60 mg/dL (5.00-40.00)
== END | disposition home or self-care (01) ==
LOC: LABWHC1 10:12
PROVIDERS: ATTEND Family Medicine
DX: E78.2 Mixed hyperlipidemia (principal); E07.9 Disorder of thyroid, unspecified
CPT/HCPCS: 36415; 80061; 84439; 84443